=== PATIENT | female | born 1970 | race Caucasian/White ===

== ENCOUNTER 2018-08-21 18:44 | Emergency (ER) | END 2018-08-21 23:57 | disposition home or self-care (01) ==

== ENCOUNTER 2018-08-23 09:37 | Emergency (ER) | END 2018-08-23 10:38 | disposition home or self-care (01) ==

== ENCOUNTER 2019-07-02 09:04 | Emergency (ER) | payer MEDICAID ==
[~2019-07-02] VITALS: Wt 79.0 kg
[~2019-07-02 09:04] MED LIST: HYDR-3980 PO; IBUP-1542 PO; NAPR-985 PO; OXYC-209 PO; TAMS-14 PO
[2019-07-02] MEDS ORDERED: IBUPROFEN 800 MG TAB PO ONE (10:00)
[2019-07-02 10:45] VITALS: PULSE 66; RESP 18
== END 2019-07-02 12:29 | disposition home or self-care (01) ==
LOC: FTE 09:04
DX: M25.561 Pain in right knee (principal)
CPT/HCPCS: 73562; Z7502; Z7610